=== PATIENT | male | born 1985 | race Caucasian/White ===

== ENCOUNTER 2016-12-06 15:01 | Emergency (ER) | payer OTHER ==
[~2016-12-06] VITALS: Ht 180.3 cm; Wt 68.0 kg
[2016-12-06 15:01] VITALS: BP 132/74
[2016-12-06] MEDS ORDERED: SUBO8MIS (15:23)
[2016-12-06] MEDS ORDERED: TYLE325C PO (15:23)
--- NOTE | 2016-12-06 17:57 | REP ---
LEFT UPPER EXTREMITY DUPLEX VEINS: HISTORY: Left arm pain. There are no filling defects in the deep venous system. The deep venous system is patent. The cephalic vein is not seen. IMPRESSION: There is no deep venous thrombosis. Signed by Dayo Cronin MD 12/06/2016 06:49 P
--- NOTE | 2016-12-06 18:10 | REPUSA ---
CLINICAL HISTORY: Left sided neck pain and headaches. TECHNIQUE: Realtime sonographic images were obtained in multiple projections. COMMENTS: Realtime examination demonstrates minimal plaque bilaterally. Hemodynamic measurement shows no evide nce of hemodynamically significant stenoses. The right ICA systolic/diastolic velocities are 70.3/33.9. The left ICA systolic/diastolic velocities are 107.7/35.7. The right CCA systolic/diastolic velocities are 140.4. The left CCA systolic/diastol ic velocities are 136.7. The right IC/CC ratio is 0.50, the left IC/CC ratio is 0.76. External carotid arteries are unremarkable, 73.1 on the right and 109.6 on the left. Vertebral arteries are visualized and have normal antegrade flow. IMPRESSION: Minimal plaque bilaterally. No evidence of hemodynamically significant stenosis. Thank you for your kind referral of this patient. We appreciate the opportunity to participate in th is patient's care.
[2016-12-06] MEDS ORDERED: CYCL5TA PO ×2 (18:24→18:49)
== END 2016-12-06 18:51 | disposition home or self-care (01) ==
LOC: M ED 16:36
DX: M54.12 Radiculopathy, cervical region (principal); F19.10 Other psychoactive substance abuse, uncomplicated; F17.200 Nicotine dependence, unspecified, uncomplicated; Z82.49 Family history of ischemic heart disease and other diseases of the circulatory system; Z88.6 Allergy status to analgesic agent

== ENCOUNTER 2017-02-14 17:23 | Emergency (ER) | payer OTHER ==
[~2017-02-14] VITALS: Ht 180.3 cm; Wt 68.2 kg
[~2017-02-14 17:23] MED LIST: CYCL5TAB PO; SUBO8MIS; TYLE325C PO
[2017-02-14 17:24] VITALS: BP 143/81
[2017-02-14] MEDS ORDERED: METH75TA PO (17:35)
[2017-02-14] MEDS ORDERED: KETOROLAC 30 MG/ML VIAL (J1885) IV ONE (18:30)
[2017-02-14] MEDS ORDERED: ONDANSETRON 4MG/2ML VIAL (J2405) IV ONE (18:30)
[2017-02-14] MEDS ORDERED: diphenhydrAMINE INJ 50MG/ML VIAL (J1200) IV ONE (18:30)
[2017-02-14] MEDS ORDERED: NS 1,000 ML IV ONE (18:30)
[2017-02-14] MEDS ORDERED: KETOROLAC 60 MG/2 ML VIAL (J1885) IM ONE (19:00)
[2017-02-14] MEDS ORDERED: diphenhydrAMINE 50 MG CAP PO ONE (19:00)
[2017-02-14] MEDS ORDERED: ONDANSETRON 4 MG ORAL DISINTEGRATING TAB (S0181) PO ONE (19:00)
--- NOTE | 2017-02-17 08:00 | REP ---
CT of the brain without IV contrast: There are no comparisons. There is no hemorrhage. There is no edema, mass effect or midline shift. The cortical stripe is unremarkable. Ventricles are normal size and midline. There is mucosal thickening in some of the ethmoid sinus air cells. The visualized paranasal sinuses and mastoid air cells otherwise are clear. Impression: There is evidence for ethmoid sinusitis. Otherwise, negative CT study of the brain. Signed by Yung العلي MD 02/14/2017 07:28 P
== END 2017-02-14 20:09 | disposition left against medical advice (07) ==
LOC: M ED 17:23
DX: G43.909 Migraine, unspecified, not intractable, without status migrainosus (principal); J32.2 Chronic ethmoidal sinusitis; K58.1 Irritable bowel syndrome with constipation; F17.200 Nicotine dependence, unspecified, uncomplicated; Z82.49 Family history of ischemic heart disease and other diseases of the circulatory system; Z82.0 Family history of epilepsy and other diseases of the nervous system; Z79.891 Long term (current) use of opiate analgesic; Z88.6 Allergy status to analgesic agent; Z88.8 Allergy status to other drugs, medicaments and biological substances; Z53.21 Procedure and treatment not carried out due to patient leaving prior to being seen by health care provider
CPT/HCPCS: 70450; 96372; 99282; J1885

== ENCOUNTER → 2018-07-22 | Outpatient (CLI) | payer OTHER ==
[~2018-07-22] MED LIST changes: +ISOVUE-300 61% 50ML VIAL (Q9967) As Ordered ONE; +LIDOCAINE 2% MDV 20 ML VIAL As Ordered ONE; +METH75TA PO
--- NOTE | 2018-08-03 10:32 | REPIR ---
DATE OF PROCEDURE: 07/22/2018 ATTENDING SURGEON: Dr. Kristian Davila TIMBER FALLER: Justine Salazar and Eugenie Waters PREOPERATIVE DIAGNOSIS: Left neck pain, prominent left external jugular vein, left upper extremity swelling. POSTOPERATIVE DIAGNOSIS: Left neck pain, prominent left external jugular vein, left upper extremity swelling. PROCEDURE: Ultrasound-guided left brachial vein cannulation, left upper extremity venogram. INDICATION: The patient is a 33-year-old male with swelling in his left upper extremity and prominent external jugular vein in the left neck with normal right sided neck veins. The patient will undergo a venogram with possible angioplasty stent and/or atherectomy. Risks, benefits and alternative treatment options were discussed with the patient. ANESTHESIA: Local with 10 mL of 2% lidocaine. FLUORO TIME: 0.2 minutes. CONTRAST: 5 mL of Isovue-300. HEPARIN: None. COMPLICATIONS: None. DRAINS: None. SPECIMENS: None. IMPLANTS: None. DESCRIPTION OF PROCEDURE: The patient was taken to the angiography suite, placed supine on the angiography table and the left upper extremity was prepped and draped in a standard surgical fashion. Ultrasound was used to guide cannulation of the left brachial vein at the antecubital fossa with a micropuncture needle. The micropuncture wire was advanced through the micropuncture needle which was upsized to a micropuncture sheath. A venogram was then performed showing no occlusion and no intervention required. The micropuncture sheath was removed and manual compression applied at the puncture site for hemostasis. Dressings were then applied. The patient tolerated the procedure well. All instrument, sponge and needle counts were correct at the end of the case. There were no complications. Dr. Davila was present for and directed the entire case. The patient was transferred to the holding area and subsequently discharged in stable condition.
== END | disposition home or self-care (01) ==
LOC: M IRPRO 07-21 09:32
PROVIDERS: ATTEND Surgery Vascular Surgery
DX: M54.2 Cervicalgia (principal); M79.89 Other specified soft tissue disorders
CPT/HCPCS: 36005; 75820; C1894; Q9967

== ENCOUNTER 2020-02-17 19:28 | Emergency (ER) | payer OTHER ==
[~2020-02-17 19:28] MED LIST changes: -ISOVUE-300 61% 50ML VIAL (Q9967) As Ordered ONE; -LIDOCAINE 2% MDV 20 ML VIAL As Ordered ONE; +METH750T2 PO; -METH75TA PO
[2020-02-17] MEDS ORDERED: LORazepam 1 MG TAB ONE (21:00)
[2020-02-17] MEDS ORDERED: LORazepam 1 MG TAB As Ordered ONE (21:16)
== END 2020-02-17 21:30 | disposition home or self-care (01) ==
LOC: M ED 19:28
DX: M54.2 Cervicalgia (principal); I73.00 Raynaud's syndrome without gangrene; F17.210 Nicotine dependence, cigarettes, uncomplicated; Z88.1 Allergy status to other antibiotic agents

== ENCOUNTER 2020-06-25 09:47 | Emergency (ER) | payer OTHER ==
[~2020-06-25] VITALS: Ht 185.4 cm; Wt 65.2 kg
[2020-06-25] MEDS ORDERED: BUPR8SUB SL (10:14)
--- NOTE | 2020-06-25 11:56 | REP ---
INDICATION: ruq pain COMPARISON: None. TECHNIQUE: Real time rob scale ultrasound examination using curved array transducer. FINDINGS: Liver is normal in contour, size, and echogenicity without focal hepatic lesions identified. Pancreas is incompletely evaluated due to interposed bowel gas. The gallbladder is normal and without gallstones, wall thickening, or pericholecystic fluid. No biliary ductal dilatation is appreciated and the common bile duct measures 3.6 mm diameter. Right kidney is normal in reniform shape without hydronephrosis and measures 13.4 x 4.9 x 3.7 cm. No ascites in the visualized right upper quadrant. IMPRESSION: Normal limited right upper quadrant ultrasound <Electronically signed by Topher Gaytan > 06/25/20 [id number]
--- NOTE | 2020-06-25 11:56 | REP ---
INDICATION: abdl pain and arm swelling COMPARISON: 12/30/2012 TECHNIQUE: PA and lateral. FINDINGS: The mediastinum and cardiac silhouette are normal. The lung diaz are clear and without acute consolidation, effusion, or pneumothorax. The skeletal structures are intact and normal. IMPRESSION: No acute cardiopulmonary process. <Electronically signed by Topher Gaytan > 06/25/20 [id number]
[2020-06-25 12:17] LABS: ALBUMIN 4.2 GM/DL (3.2-5.2); ALT/SGPT 18 U/L (12-78); BILIRUBIN,DIRECT < 0.1 MG/DL (0.0-0.2); BILIRUBIN,TOTAL 0.5 MG/DL (0.2-1.0); BLOOD UREA NITROGEN 7 MG/DL (7-18); CALCIUM LEVEL 9.6 MG/DL (8.5-10.1); CARBON DIOXIDE LEVEL 27 MEQ/L (21-32); CHLORIDE LEVEL 103 MEQ/L (98-107); CREATININE FOR GFR 0.86 MG/DL (0.70-1.30); GLOMERULAR FILTRATION RATE > 60.0 (>60); GLUCOSE, FASTING 111 MG/DL (70-100); LIPASE 68 U/L (73-393); POTASSIUM SERUM 4.7 MEQ/L (3.5-5.1); SODIUM LEVEL 137 MEQ/L (136-145); TOTAL PROTEIN 7.7 GM/DL (6.4-8.2)
[2020-06-25 12:55] LABS: BASO # 0.1 10^3/uL (0.0-0.2); BASO % 0.5 % (0.0-1.0); EOS % 0.2 % (0.0-3.0); HEMATOCRIT 48.8 % (42.0-52.0); HEMOGLOBIN 16.8 g/dl (13.5-17.5); LYMPH # 1.7 10^3/uL (1.5-5.0); LYMPH % 18.4 % (24.0-44.0); MEAN CORPUSCULAR HEMOGLOBIN 31.5 pg (27.0-33.0); MEAN CORPUSCULAR HGB CONC 34.4 g/dl (32.0-36.5); MEAN CORPUSCULAR VOLUME 91.4 fl (80.0-96.0); MONO # 0.6 10^3/uL (0.0-0.8); MONO % 6.1 % (0.0-5.0); NEUTROPHILS # 6.7 10^3/uL (1.5-8.5); NEUTROPHILS % 73.6 % (36.0-66.0); PLATELET COUNT, AUTOMATED 240 10^3/uL (150-450); RED BLOOD COUNT 5.34 10^6/uL (4.30-6.10); WHITE BLOOD COUNT 9.1 10^3/uL (4.0-10.0)
[2020-06-25 13:14] VITALS: BP 123/81
== END 2020-06-25 13:17 | disposition home or self-care (01) ==
LOC: M ED 09:47
DX: R10.11 Right upper quadrant pain (principal); K58.9 Irritable bowel syndrome, unspecified; I73.00 Raynaud's syndrome without gangrene; Z88.8 Allergy status to other drugs, medicaments and biological substances

== ENCOUNTER 2020-08-29 01:11 | Emergency (ER) | payer OTHER ==
[~2020-08-29] VITALS: Ht 185.4 cm; Wt 63.8 kg
[~2020-08-29 01:11] MED LIST changes: +BUPR8SUB SL; +MEDR4PAK PO; +METH-1165 PO; -METH750T2 PO
--- OUTSIDE RECORDS SUMMARY | 2020-08-29 01:19 | CCD ---
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 Document(s) Amylase 46 U/L 25-115 Normal (applies to non-numeric resul ts) [facility] ID Date Data Source [id number] 11/22/2019 10:34:00 PM EDT [facility] Name Value Range Interpretation Code Description Data Yaritza rce(s) Supporting Document(s) Lipase 59 U/L 73-393 Below low normal [facility] spital ID Date Data Source [id number] 09/23/2019 01:54:00 AM EDT [facility] Name Value Range Interpretation Code Description Data Yaritza rce(s) Supporting Document(s) White Blood Count 3.5-10.5 Above high normal [facility] Red Blood Count 4.30-5.70 Normal (applies to non-numeric results) [facility] Hemoglobin 13.5-17.5 Normal (applies to non-numeric resul ts) [facility] Hematocrit 38.8-50.0 Normal (applies to non-numeric resul ts) [facility] Mean Corpuscular Volume 81.2-95.1 Normal (applies to non- numeric results) [facility] Mean Corpuscular Hgb 25.6-32.2 Normal (applies to non-num nallely results) [facility] Mean Corpuscular Hgb Conc 32.0-36.0 Normal (applies to no n-numeric results) [facility] Red Cell Distribution Width 11.8-15.6 Normal (appli es to non-numeric results) [facility] Platelet Count 225 x10 3/uL 150-450 Normal (applies to non-numeric results) [facility] Mean Platelet Volume 9.4-12.4 Normal (applies to non-num nallely results) [facility] Neutrophils% (Auto) 31.0-71.0 Normal (applies to non-nume jeison results) [facility] Lymphocytes% (Auto) 20.0-55.0 Normal (applies to non-nume jeison results) [facility] Monocytes% (Auto) 4.0-12.0 Normal (applies to non-numeri c results) [facility] Eosinophils% (Auto) 1.0-8.0 Normal (applies to non-nume jeison results) [facility] Basophils% (Auto) 0.0-2.0 Normal (applies to non-numeri c results) [facility] Immature Granulocytes% (Auto) 0.0-2.0 Normal (nabila lies to non-numeric results) [facility] Neutrophils# (Auto) 1.50-6.20 Above high normal [facility] Lymphocytes# (Auto) 1.20-4.00 Normal (applies to non-nume jeison results) [facility] Monocytes# (Auto) 0.00-0.90 Normal (applies to non-numeri c results) [facility] Eosinophils# (Auto) 0.00-0.50 Normal (applies to non-nume jeison results) [facility] Basophils# (Auto) 0.00-0.20 Normal (applies to non-numeri c results) [facility] Immature Granulocytes# (Auto) 0.00-7.00 No rmal (applies to non-numeric results) [facility] ID Date Data Source [id number] 09/23/2019 01:22:00 AM EDT [facility] Imaging Services Department Imaging Report [address], [place] [address] %(RAD)RES..mtdd.print.filter("line") Name: DENISE ARORA : 1985 Age/Sex: 34M Ordering Provider: BRADLEY Lee Med Rec #: [id number] Reg Status: REG ER Room #: Date of Service: 09/23/19 Report Number: [id number] cc:Imer Matthews MD; BRADLEY Lee Send Report To: CT ABDOMEN AND PELVIS WITHOUT CONTRAST COMPARISON: CT HISTORY: Umbilical pain TECHNIQUE: CT images through the abdomen and pelvis obtained without intravenous contrast. FINDINGS: Lung bases are clear. Heart s ize is normal. Abdomen: Liver, spleen, adrenals, pancreas, gallbladder unremarkable. No hydronephrosis or urinary stone. Pelvis: Post appendectomy. No bowel obstruction. No free fluid or free air. No acute bony abnormality.Impressions: Post appendectomy. Otherwise, unremarkable noncontrast CT of the abdomen and pelvis. Time portable performed: Fluoroscopy time in seconds: Number of Exposures: Contrast Agent in ml: Method of Administration: REPORT SIGNATURE ON FILE Reported By: Sunny Dubois MD 09/23/19121 Dictation Date/Time: 09/23/19121 Transcribed Date/Time: 09/23/19121 [employer]: Name Value Range Interpretation Code Description Data Yaritza rce(s) Supporting Document(s) ID Date Data Source [id number] 09/07/2019 11:39:00 PM EST [facility] Name Value Range Interpretation Code Description Data [facility](s) Supporting Document(s) Troponin I 0.000-0.056 Normal (applies to non-numeric resu lts) [facility] Procedure Vital Signs ID Date Data Source [id number] 01/16/2020 05:09:00 AM EDT [facility] spital Name Value Range Interpretation Code Description Data Source(s) Weight Measurement Method 8 8 [facility] Weight 2400 2400 [facility] pital Temperature Source 7 7 [employer] Temperature 98.9 98.9 [facility] spital Respiratory Effort 1 1 [employer] Respiratory Rate 16 16 [facility] Pulse Rate 102 102 [facility] Height 70 70 [facility] pital Blood Pressure 139/88 139/88 [facility] Weight Measurement Method 8 8 [facility] Weight 2400 2400 [facility] pital Temperature Source 7 7 [employer] Temperature 98.9 98.9 [facility] Respiratory Effort 1 1 [employer] Respiratory Rate 16 16 [facility] Pulse Rate 102 102 [facility] Height 70 70 [facility] Blood Pressure 139/88 139/88 [facility] Weight Measurement Method 8 8 [facility] Weight 2400 2400 [facility] pital Temperature Source 7 7 [employer] Temperature 98.9 98.9 [facility] Respiratory Effort 1 1 [employer] Respiratory Rate 16 16 [facility] Pulse Rate 102 102 [facility] Height 70 70 [facility] pital Blood Pressure 139/88 139/88 [facility] Weight Measurement Method 8 8 [facility] Weight 2400 2400 [facility] pital Temperature Source 7 7 [employer] Temperature 98.9 98.9 [facility] Respiratory Effort 1 1 [employer] Respiratory Rate 16 16 [facility] Pulse Rate 102 102 [facility] Height 70 70 [facility] pital Blood Pressure 139/88 139/88 [facility] ID Date Data Source [id number] 01/06/2020 08:20:00 PM EDT [facility] Name Value Range Interpretation Code Description Data Source(s) Weight Measurement Method 8 8 [facility] Weight 2480 2480 [facility] pital Temperature Source 7 7 [employer] Temperature 98.0 98.0 [facility] Respiratory Effort 1 1 [employer] Respiratory Rate 16 16 [facility] Pulse Rate 98 98 [facility] Height 73 73 [facility] pital Blood Pressure 135/91 135/91 [facility] Weight Measurement Method 8 8 [facility] Weight 2480 2480 [facility] pital Temperature Source 7 7 [employer] Temperature 98.0 98.0 [facility] Respiratory Effort 1 1 [employer] Respiratory Rate 16 16 [facility] Pulse Rate 98 98 [facility] Height 73 73 [facility] pital Blood Pressure 135/91 135/91 [facility] Weight Measurement Method 8 8 [facility] Weight 2480 2480 [facility] pital Temperature Source 7 7 [employer] Temperature 98.0 98.0 [facility] Respiratory Effort 1 1 [employer] Respiratory Rate 16 16 [facility] Pulse Rate 98 98 [facility] pital Height 73 73 [facility] pital Blood Pressure 135/91 135/91 [facility] ID Date Data Source [id number] 01/03/2020 11:49:00 AM EDT [facility] Name Value Range Interpretation Code Description Data Source(s) Weight Measurement Method 8 8 [facility] Weight 2240 2240 [facility] pital Temperature Source 7 7 [employer] Temperature 98.8 98.8 [facility] Respiratory Effort 1 1 [employer] Respiratory Rate 20 20 [facility] Pulse Rate 104 104 [facility] pital Height 72 72 [facility] pital Blood Pressure 128/78 128/78 [facility] ID Date Data Source [id number] 11/22/2019 10:54:00 PM EDT [facility] Name Value Range Interpretation Code Description Data Source(s) Weight Measurement Method 8 8 [facility] Weight 2079 2079 [facility] pital Temperature Source 7 7 [employer] Temperature 98.4 98.4 [facility] Respiratory Effort 1 1 [employer] [employer] Respiratory Rate 16 16 [facility] Pulse Rate 96 96 [facility] pital Blood Pressure 144/86 144/86 [facility] Weight Measurement Method 8 8 [facility] Weight 2079 2079 [facility] pital Temperature Source 7 7 [employer] Temperature 98.4 98.4 [facility] spital Respiratory Effort 1 1 [employer] Respiratory Rate 16 16 [facility] Pulse Rate 96 96 [facility] pital Blood Pressure 144/86 144/86 [facility] ID Date Data Source [id number] 09/23/2019 02:12:00 AM EDT [facility] Name Value Range Interpretation Code Description Data Source(s) Weight Measurement Method 8 8 [facility] Weight 5820.203 5820.203 [facility] pital Temperature Source 7 7 [employer] Temperature 98.0 98.0 [facility] spital Respiratory Effort 1 1 [employer] Respiratory Rate 18 18 [facility] Pulse Assessment Method 4 4 [facility] Pulse Rate 92 92 [facility] 150/94 150/94 [facility] Weight Measurement Method 8 8 [facility] Weight 5820.203 5820.203 [facility] pital Temperature Source 7 7 [employer] Temperature 98.0 98.0 [facility] spital Respiratory Effort 1 1 [employer] Respiratory Rate 18 18 [facility] Pulse Assessment Method 4 4 [facility] Pulse Rate 92 92 [facility] 150/94 150/94 [facility] Respiratory Rate 18 18 [facility] Pulse Rate 92 92 [facility]ital Height 71 71 [facility] 150/94 150/94 [facility] Weight Measurement Method 8 8 [facility] Weight 5820.203 5820.203 [facility] pital Temperature Source 7 7 [employer] Temperature 98.0 98.0 [facility] spital Respiratory Effort 1 1 [employer] Pulse Assessment Method 4 4 [facility] ID Date Data Source [id number] 09/08/2019 12:06:00 AM EST [facility] Name Value Range Interpretation Code Description Data Source(s) Weight Measurement Method 8 8 [facility] Weight 1840 1840 [facility] pital Temperature Source 1 1 [employer] Temperature 98.6 98.6 [facility] Respiratory Effort 1 1 [employer] Respiratory Rate 16 16 [facility] Pulse Assessment Method 4 4 [facility] Pulse Rate 91 91 [facility] pital Height 73 73 [facility] pital Blood Pressure 127/74 127/74 [facility] Weight Measurement Method 8 8 [facility] Weight 2400 2400 [facility] pital Temperature Source 7 7 [employer] Temperature 98.9 98.9 [facility] Respiratory Effort 1 1 [employer] Respiratory Rate 16 16 [facility] Pulse Assessment Method 4 4 [facility] Pulse Rate 108 108 [facility] pital Height 73 73 [facility] pital Blood Pressure 138/88 138/88 [facility] ID Date Data Source [id number] 07/22/2019 06:15:00 PM EST [facility] Name Value Range Interpretation Code Description Data Source(s) Weight Measurement Method 1 1 [facility] Weight 2400 2400 [facility] pital Temperature Source 3 3 [employer] Temperature 98.5 98.5 [facility] Respiratory Effort 1 1 [employer] Respiratory Rate 16 16 [facility] Pulse Assessment Method 3 3 G [facility] Pulse Rate 102 102 [facility] pital Height 73 73 [facility] pital Blood Pressure 145/83 145/83 [facility] Weight Measurement Method 1 1 [facility] Weight 2400 2400 [facility] pital Temperature Source 3 3 [employer] Temperature 98.5 98.5 [facility] Respiratory Effort 1 1 [employer] Respiratory Rate 16 16 [facility] Pulse Assessment Method 3 3 [facility] Pulse Rate 102 102 [facility] Height 73 73 [facility] pital Blood Pressure 145/83 145/83 [facility] Weight Measurement Method 1 1 [facility] Weight 2400 2400 [facility] pital Temperature Source 3 3 [employer] Temperature 98.5 98.5 [facility] spital Respiratory Effort 1 1 [employer] Respiratory Rate 16 16 [facility] Pulse Assessment Method 3 3 [facility] Pulse Rate 102 102 [facility] pital Height 73 73 [facility] Blood Pressure 145/83 145/83 [facility]
[2020-08-29] MEDS ORDERED: diazePAM 5MG TABLET PO ONE (03:00)
[2020-08-29] MEDS ORDERED: ISOVUE-370 76% 100ML VIAL As Ordered ONE (03:04)
[2020-08-29 05:09] LABS: ALBUMIN 4.2 GM/DL (3.2-5.2); ALT/SGPT 20 U/L (12-78); BILIRUBIN,TOTAL 0.3 MG/DL (0.2-1.0); BLOOD UREA NITROGEN 12 MG/DL (7-18); CALCIUM LEVEL 8.8 MG/DL (8.5-10.1); CARBON DIOXIDE LEVEL 30 MEQ/L (21-32); CHLORIDE LEVEL 102 MEQ/L (98-107); CREATININE FOR GFR 0.84 MG/DL (0.70-1.30); GLOMERULAR FILTRATION RATE > 60.0 (>60); GLUCOSE, FASTING 80 MG/DL (70-100); POTASSIUM SERUM 3.9 MEQ/L (3.5-5.1); SODIUM LEVEL 138 MEQ/L (136-145); TOTAL PROTEIN 7.1 GM/DL (6.4-8.2)
[2020-08-29 06:30] VITALS: BP 134/86
[2020-08-29] MEDS ORDERED: PRED20TA PO (06:39)
[2020-08-29] MEDS ORDERED: MEDR4PAK PO (06:49)
== END 2020-08-29 06:54 | disposition home or self-care (01) ==
LOC: M ED 01:11
DX: M54.2 Cervicalgia (principal); H92.02 Otalgia, left ear; I73.00 Raynaud's syndrome without gangrene; F17.200 Nicotine dependence, unspecified, uncomplicated; Z88.6 Allergy status to analgesic agent; Z88.8 Allergy status to other drugs, medicaments and biological substances; Z79.899 Other long term (current) drug therapy

== ENCOUNTER 2020-09-07 10:04 | Emergency (ER) | payer OTHER ==
[~2020-09-07] VITALS: Ht 185.4 cm; Wt 64.8 kg
[~2020-09-07 10:04] MED LIST changes: +PRED20TA PO
[2020-09-07] MEDS ORDERED: ALPRAZolam 0.25 MG TAB PO ONE (12:10)
[2020-09-07 13:02] LABS: AMPHETAMINES LEVEL URINE NEGATIVE (NEGATIVE); BARBITURATES URINE NEGATIVE (NEGATIVE); BENZODIAZEPINES URINE NEGATIVE (NEGATIVE); CANNABINOIDS URINE NEGATIVE (NEGATIVE); COCAINE METABOLITE URINE NEGATIVE (NEGATIVE); METHADONE URINE NEGATIVE (NEGATIVE); OPIATES URINE NEGATIVE (NEGATIVE); PHENCYCLIDINE URINE NEGATIVE (NEGATIVE)
[2020-09-07 14:04] LABS: BASO % 0.4 % (0.0-1.0); EOS % 0.4 % (0.0-3.0); HEMATOCRIT 44.7 % (42.0-52.0); HEMOGLOBIN 15.2 g/dl (13.5-17.5); LYMPH # 1.5 10^3/uL (1.5-5.0); LYMPH % 14.3 % (24.0-44.0); MEAN CORPUSCULAR HEMOGLOBIN 31.9 pg (27.0-33.0); MEAN CORPUSCULAR VOLUME 93.7 fl (80.0-96.0); MONO # 0.4 10^3/uL (0.0-0.8); MONO % 4.1 % (2.0-8.0); NEUTROPHILS # 8.4 10^3/uL (1.5-8.5); NEUTROPHILS % 80.6 % (36.0-66.0); PLATELET COUNT, AUTOMATED 205 10^3/uL (150-450); RED BLOOD COUNT 4.77 10^6/uL (4.30-6.10); WHITE BLOOD COUNT 10.4 10^3/uL (4.0-10.0)
--- NOTE | 2020-09-07 14:22 | REP ---
INDICATION: neck pain/ no line/ previous drug user COMPARISON: None. TECHNIQUE: Richardson scale and color Doppler evaluation using linear high frequency transducer Findings: FINDINGS: Two-dimensional richardson scale and color images demonstrate minimal intimal thickening, with normal laminar flow and no appreciable narrowing. Color Doppler interrogation demonstrates normal arterial wave patterns and velocities with no significant spectral broadening. Normal flow direction is appreciated in the bilateral vertebral arteries. ICA peak systolic velocity: Right 116 cm/s; Left 149 cm/s ICA diastolic velocity: Right 36 cm/s; Left 44 cm/s ECA peak systolic velocity: Right 88 cm/s; Left 119 cm/s CCA peak systolic velocity: Right 156 cm/s; Left 160 cm/s ICA/CCA ratio: Right 0.74 cm/s; Left 0.93 cm/s IMPRESSION: No hemodynamically significant areas of narrowing or stenosis appreciated. Based on set standards narrowing falls within the normal/less than 50% range. <Electronically signed by Topher Gaytan > 09/07/20 [id number]
[2020-09-07 15:33] VITALS: BP 131/86
--- NOTE | 2020-09-08 08:05 | ECGEPIP ---
[facility] - ED Test Date: 2020-09-07 Pat Name: DENISE ARORA Department: Room: - Gender: Male [employer]: wisam : 1985 Requested By: NANI Curtis PA-C Order Number: [id number] Reading MD: Carolina Murillo Measurements Intervals [place] Rate: 70 P: 44 TN: 126 QRS: 85 QRSD: 82 T: 41 QT: 378 QTc: 408 Interpretive Statements Normal sinus rhythm No prior Electronically Signed on 09-08-2020 8:05:20 EST by Carolina Murillo
== END 2020-09-07 15:35 | disposition home or self-care (01) ==
LOC: M ED 10:04
DX: M54.2 Cervicalgia (principal); R22.33 Localized swelling, mass and lump, upper limb, bilateral; R51.9 Headache, unspecified; R00.2 Palpitations; Z87.19 Personal history of other diseases of the digestive system; F17.200 Nicotine dependence, unspecified, uncomplicated; Z88.6 Allergy status to analgesic agent; Z88.8 Allergy status to other drugs, medicaments and biological substances

== ENCOUNTER 2020-09-14 18:22 | Emergency (ER) | payer OTHER ==
[~2020-09-14] VITALS: Ht 185.4 cm; Wt 63.5 kg
[2020-09-14] MEDS ORDERED: METH4PACK (18:38)
[2020-09-14] MEDS ORDERED: ACET-897 PO (18:38)
[2020-09-14 18:44] VITALS: BP 150/84
[2020-09-14] MEDS ORDERED: GI COCKTAIL 50ML BTL(HYOSCYAMINE/MAALOX/LIDOCAINE VISCOUS)(1:3:1) PO ONE (19:00)
--- NOTE | 2020-09-14 19:41 | REP ---
INDICATION: palpitations COMPARISON: 06/25/2020 TECHNIQUE: Portable AP view of the chest FINDINGS: The mediastinum and cardiac silhouette are stable and within normal limits for portable technique. The lung diaz are clear without acute consolidation, effusion, or pneumothorax. Skeletal structures are intact. IMPRESSION: No acute cardiopulmonary process appreciated. <Electronically signed by Topher Gaytan > 09/14/20 [id number]
[2020-09-14 20:35] LABS: BASO # 0.1 10^3/uL (0.0-0.2); BASO % 0.4 % (0.0-1.0); EOS % 0.3 % (0.0-3.0); HEMATOCRIT 49.6 % (42.0-52.0); HEMOGLOBIN 16.7 g/dl (13.5-17.5); LYMPH # 2.8 10^3/uL (1.5-5.0); LYMPH % 19.8 % (24.0-44.0); MEAN CORPUSCULAR HEMOGLOBIN 32.1 pg (27.0-33.0); MEAN CORPUSCULAR HGB CONC 33.7 g/dl (32.0-36.5); MEAN CORPUSCULAR VOLUME 95.2 fl (80.0-96.0); MONO # 0.7 10^3/uL (0.0-0.8); MONO % 4.6 % (2.0-8.0); NEUTROPHILS # 10.6 10^3/uL (1.5-8.5); NEUTROPHILS % 74.5 % (36.0-66.0); PLATELET COUNT, AUTOMATED 222 10^3/uL (150-450); RED BLOOD COUNT 5.21 10^6/uL (4.30-6.10); WHITE BLOOD COUNT 14.3 10^3/uL (4.0-10.0)
[2020-09-14 21:09] LABS: BLOOD UREA NITROGEN 9 MG/DL (7-18); CALCIUM LEVEL 9.9 MG/DL (8.5-10.1); CARBON DIOXIDE LEVEL 32 MEQ/L (21-32); CHLORIDE LEVEL 100 MEQ/L (98-107); CREATININE FOR GFR 0.85 MG/DL (0.70-1.30); GLOMERULAR FILTRATION RATE > 60.0 (>60); GLUCOSE, FASTING 94 MG/DL (70-100); MAGNESIUM LEVEL 2.1 MG/DL (1.8-2.4); POTASSIUM SERUM 4.3 MEQ/L (3.5-5.1); SODIUM LEVEL 137 MEQ/L (136-145); T UPTAKE 34 % (33-40); THYROXINE (T4) 8.7 UG/DL (4.5-12.0)
--- NOTE | 2020-09-14 22:17 | REPVR ---
PROCEDURE INFORMATION: Exam: CT Chest Without Contrast; Diagnostic Exam date and time: 09/14/2020 9:32 PM Age: 35 years old Clinical indication: Chest pain; Other: Discomfort; Additional info: Chest discomfort TECHNIQUE: Imaging protocol: Diagnostic computed tomography of the chest without contrast. 3D rendering (Not supervised by radiologist): MIP and/or 3D reconstructed images were created by the technologist. Radiation optimization: All CT scans at this facility use at least one of these dose optimization techniques: automated exposure control; mA and/or kV adjustment per patient size (includes targeted exams where dose is matched to clinical indication); or iterative reconstruction. COMPARISON: CR Chest, 1 view 09/14/2020 7:11 PM FINDINGS: Lungs: Emphysematous changes. Pleural spaces: Unremarkable. No pneumothorax. No pleural effusion. Heart: Unremarkable. No cardiomegaly. No pericardial effusion. Aorta: Unremarkable. No aortic aneurysm. Lymph nodes: Unremarkable. No enlarged lymph nodes. Bones/joints: Unremarkable. No acute fracture. Mild degenerative changes of the thoracic spine. Soft tissues: Unremarkable. IMPRESSION: No acute abnormality. Electronically signed by: Everette Martinez On 09/14/2020 22:17:05 PM
[2020-09-14] MEDS ORDERED: ACETAMINOPHEN TAB 650MG DOSE (2X325MG) PO ONE (22:35)
[2020-09-14 22:36] LABS: METHADONE URINE NEGATIVE (NEGATIVE)
[2020-09-14 23:00] LABS: ALBUMIN 4.4 GM/DL (3.2-5.2); ALT/SGPT 22 U/L (12-78); BILIRUBIN,DIRECT < 0.1 MG/DL (0.0-0.2); BILIRUBIN,TOTAL 0.4 MG/DL (0.2-1.0); LIPASE 78 U/L (73-393); TOTAL PROTEIN 7.5 GM/DL (6.4-8.2)
[2020-09-14] MEDS ORDERED: SUCR1TA PO (23:11)
[2020-09-14] MEDS ORDERED: OMEP40CA97 PO (23:11)
[2020-09-14 23:25] LABS: AMPHETAMINES LEVEL URINE NEGATIVE (NEGATIVE); BARBITURATES URINE NEGATIVE (NEGATIVE); BENZODIAZEPINES URINE NEGATIVE (NEGATIVE); CANNABINOIDS URINE NEGATIVE (NEGATIVE); COCAINE METABOLITE URINE NEGATIVE (NEGATIVE); OPIATES URINE NEGATIVE (NEGATIVE)
--- NOTE | 2020-09-15 18:42 | ECGEPIP ---
[facility] - ED Test Date: 2020-09-14 Pat Name: DENISE ARORA Department: Room: - Gender: Male Email Developer: bety : 1985 Requested By: Carolina Murillo Order Number: [id number] Reading MD: Carolina Murillo Measurements Intervals [place] Rate: 88 P: 79 [place]: 136 QRS: 86 QRSD: 82 T: 53 QT: 356 QTc: 430 Interpretive Statements Normal sinus rhythm with sinus arrhythmia increased rate 09/07/20 Electronically Signed on 09-15-2020 18:42:34 EST by Carolina Murillo
== END 2020-09-14 23:30 | disposition left against medical advice (07) ==
LOC: M ED 18:22
DX: R07.89 Other chest pain (principal); F19.10 Other psychoactive substance abuse, uncomplicated; K58.1 Irritable bowel syndrome with constipation; Z53.9 Procedure and treatment not carried out, unspecified reason; F17.200 Nicotine dependence, unspecified, uncomplicated; Z88.6 Allergy status to analgesic agent; Z88.8 Allergy status to other drugs, medicaments and biological substances; Z79.899 Other long term (current) drug therapy

== ENCOUNTER 2020-10-29 18:27 | Emergency (ER) | payer OTHER ==
[~2020-10-29] VITALS: Ht 185.4 cm; Wt 62.9 kg
[2020-10-29 18:27] VITALS: BP 133/82
[~2020-10-29 18:27] MED LIST changes: +ACET-897 PO; +METH4PACK; +OMEP40CA97 PO; +SUCR1TA PO
[2020-10-29] MEDS ORDERED: LIDOCAINE 5% (LIDODERM) PATCH TD ONE (19:25)
[2020-10-29] MEDS ORDERED: methocarbamoL 750 MG TAB PO ONE (19:25)
[2020-10-29] MEDS ORDERED: ACETAMINOPHEN 500 MG TAB PO ONE (19:25)
[2020-10-29 19:52] LABS: BASO # 0.1 10^3/uL (0.0-0.2); BASO % 0.6 % (0.0-1.0); EOS # 0.1 10^3/uL (0.0-0.5); EOS % 0.9 % (0.0-3.0); HEMATOCRIT 46.9 % (42.0-52.0); HEMOGLOBIN 16.3 g/dl (13.5-17.5); LYMPH # 3.4 10^3/uL (1.5-5.0); LYMPH % 24.4 % (24.0-44.0); MEAN CORPUSCULAR HEMOGLOBIN 32.3 pg (27.0-33.0); MEAN CORPUSCULAR HGB CONC 34.8 g/dl (32.0-36.5); MEAN CORPUSCULAR VOLUME 93.1 fl (80.0-96.0); NEUTROPHILS # 9.1 10^3/uL (1.5-8.5); NEUTROPHILS % 65.5 % (36.0-66.0); PLATELET COUNT, AUTOMATED 261 10^3/uL (150-450); RED BLOOD COUNT 5.04 10^6/uL (4.30-6.10)
[2020-10-29 20:16] LABS: ALBUMIN 4.3 GM/DL (3.2-5.2); ALT/SGPT 21 U/L (12-78); BILIRUBIN,DIRECT < 0.1 MG/DL (0.0-0.2); BILIRUBIN,TOTAL 0.4 MG/DL (0.2-1.0); BLOOD UREA NITROGEN 10 MG/DL (7-18); CALCIUM LEVEL 9.4 MG/DL (8.5-10.1); CARBON DIOXIDE LEVEL 25 MEQ/L (21-32); CHLORIDE LEVEL 105 MEQ/L (98-107); CREATININE FOR GFR 0.74 MG/DL (0.70-1.30); GLOMERULAR FILTRATION RATE > 60.0 (>60); GLUCOSE, FASTING 84 MG/DL (70-100); SODIUM LEVEL 138 MEQ/L (136-145); TOTAL PROTEIN 8.3 GM/DL (6.4-8.2)
[2020-10-29] MEDS ORDERED: ASPE4PAD TOP (20:36)
[2020-10-29] MEDS ORDERED: METH-1165 PO (20:36)
[2020-10-29] MEDS ORDERED: **NOTE PATIENT COMMENT** MISC XX SCH (21:00)
== END 2020-10-29 20:49 | disposition home or self-care (01) ==
LOC: M ED 18:27
DX: M54.9 Dorsalgia, unspecified (principal); F17.200 Nicotine dependence, unspecified, uncomplicated; Z88.6 Allergy status to analgesic agent; Z88.8 Allergy status to other drugs, medicaments and biological substances

== ENCOUNTER 2021-04-04 14:01 | Emergency (ER) | payer OTHER ==
[~2021-04-04] VITALS: Ht 182.9 cm; Wt 65.5 kg
[~2021-04-04 14:01] MED LIST changes: +ASPE4PAD TOP; +OMEP40CA4 PO; -OMEP40CA97 PO
[2021-04-04 14:02] VITALS: BP 133/86
== END 2021-04-04 20:40 | disposition left against medical advice (07) ==
LOC: M ED 14:01
DX: R51.9 Headache, unspecified (principal); M54.2 Cervicalgia; R05 Cough; Z53.9 Procedure and treatment not carried out, unspecified reason; I73.00 Raynaud's syndrome without gangrene; G89.29 Other chronic pain; F11.10 Opioid abuse, uncomplicated; F17.200 Nicotine dependence, unspecified, uncomplicated; Z88.8 Allergy status to other drugs, medicaments and biological substances; Z88.6 Allergy status to analgesic agent

== ENCOUNTER → 2023-03-20 | Outpatient (REF) | payer OTHER ==
[2023-03-25 12:08] LABS: CREATININE, URINE 207.7 mg/dL (20.0-300.0)
== END ==
LOC: M LAB REF 16:19
PROVIDERS: ATTEND Nurse Practitioner Family
DX: Z79.899 Other long term (current) drug therapy (principal)

== ENCOUNTER 2023-04-17 16:10 | Emergency (ER) | payer OTHER | END 2023-04-17 16:20 | disposition left against medical advice (07) | LOC: M ED 16:10 | DX: Z53.21 Procedure and treatment not carried out due to patient leaving prior to being seen by health care provider (principal) ==

== ENCOUNTER 2023-06-07 02:49 | Emergency (ER) | payer MEDICAID, OTHER ==
[2023-06-07 03:09] VITALS: TEMP 101.8
[2023-06-07 03:37] LABS: BASO # 0.1 10^3/uL (0.0-0.2); BASO % 0.7 % (0.0-1.0); EOS # 0.1 10^3/uL (0.0-0.5); EOS % 0.8 % (0.0-3.0); HEMATOCRIT 42.1 % (42.0-52.0); HEMOGLOBIN 14.8 g/dl (13.5-17.5); LYMPH # 0.7 10^3/uL (1.5-5.0); LYMPH % 9.4 % (24.0-44.0); MEAN CORPUSCULAR HEMOGLOBIN 31.8 pg (27.0-33.0); MEAN CORPUSCULAR HGB CONC 35.2 g/dl (32.0-36.5); MEAN CORPUSCULAR VOLUME 90.3 fl (80.0-96.0); MONO # 0.6 10^3/uL (0.0-0.8); MONO % 7.6 % (2.0-8.0); NEUTROPHILS # 5.9 10^3/uL (1.5-8.5); NEUTROPHILS % 81.4 % (36.0-66.0); PLATELET COUNT, AUTOMATED 165 10^3/uL (150-450); RED BLOOD COUNT 4.66 10^6/uL (4.30-6.10); WHITE BLOOD COUNT 7.2 10^3/uL (4.0-10.0)
[2023-06-07 03:56] LABS: ALBUMIN 3.6 G/DL (3.2-5.2); ALKALINE PHOSPHATASE 91 U/L (46-116); ALT/SGPT < 9 U/L (7.0-40); AST/SGOT < 8 U/L (<34); BILIRUBIN,TOTAL 0.4 MG/DL (0.3-1.2); BLOOD UREA NITROGEN 7 MG/DL (9-23); CALCIUM LEVEL 8.5 MG/DL (8.5-10.1); CARBON DIOXIDE LEVEL 26 MMOL/L (20-31); CHLORIDE LEVEL 100 MMOL/L (98-107); CREATININE FOR GFR 0.85 MG/DL (0.70-1.30); GLOMERULAR FILTRATION RATE > 60.0 (>60); GLUCOSE, FASTING 123 MG/DL (60-100); POTASSIUM SERUM 3.2 MMOL/L (3.5-5.1); SODIUM LEVEL 134 MMOL/L (136-145); TOTAL PROTEIN 6.2 G/DL (5.7-8.2)
[2023-06-07] MEDS ORDERED: NS 1,000 ML IV ONE (04:10)
[2023-06-07 04:31] VITALS: BP 124/78; O2SAT 98
[2023-06-07] MEDS ORDERED: KETOROLAC 60MG 2ML VIAL IM ONE (04:35)
[2023-06-07] MEDS ORDERED: VENTAER INH (04:56)
== END 2023-06-07 05:33 | disposition home or self-care (01) ==
LOC: M ED 02:49
DX: U07.1 COVID-19 (principal); F17.210 Nicotine dependence, cigarettes, uncomplicated; Z88.8 Allergy status to other drugs, medicaments and biological substances; R00.0 Tachycardia, unspecified

== ENCOUNTER 2023-07-19 18:09 | Emergency (ER) | payer OTHER ==
[~2023-07-19] VITALS: Ht 185.4 cm; Wt 67.5 kg
[~2023-07-19 18:09] MED LIST changes: +VENTAER INH
[2023-07-19 19:51] LABS: RSV AMPLIFICATION NEGATIVE (NEGATIVE)
[2023-07-19] MEDS ORDERED: ISOVUE-370 76% 100ML VIAL As Ordered ONE (20:12)
[2023-07-19 20:52] LABS: BASO % 0.3 % (0.0-1.0); EOS # 0.1 10^3/uL (0.0-0.5); EOS % 0.5 % (0.0-3.0); HEMATOCRIT 42.5 % (42.0-52.0); HEMOGLOBIN 14.9 g/dl (13.5-17.5); LYMPH # 1.1 10^3/uL (1.5-5.0); LYMPH % 11.2 % (24.0-44.0); MEAN CORPUSCULAR HEMOGLOBIN 32.3 pg (27.0-33.0); MEAN CORPUSCULAR HGB CONC 35.1 g/dl (32.0-36.5); MONO # 0.4 10^3/uL (0.0-0.8); MONO % 3.9 % (2.0-8.0); NEUTROPHILS % 83.9 % (36.0-66.0); PLATELET COUNT, AUTOMATED 195 10^3/uL (150-450); RED BLOOD COUNT 4.62 10^6/uL (4.30-6.10); WHITE BLOOD COUNT 9.5 10^3/uL (4.0-10.0)
[2023-07-19 21:17] LABS: FREE T4 1.02 NG/DL (0.89-1.76); THYROID STIMULATING HORMONE 1.327 uIU/ML (0.55-4.78)
[2023-07-19 21:19] LABS: ALBUMIN 3.8 G/DL (3.2-5.2); ALKALINE PHOSPHATASE 93 U/L (46-116); ALT/SGPT 14 U/L (7.0-40); AST/SGOT 18 U/L (<34); BILIRUBIN,DIRECT < 0.1 MG/DL (<0.4); BILIRUBIN,TOTAL 0.3 MG/DL (0.3-1.2); BLOOD UREA NITROGEN 8 MG/DL (9-23); CALCIUM LEVEL 8.8 MG/DL (8.5-10.1); CARBON DIOXIDE LEVEL 29 MMOL/L (20-31); CHLORIDE LEVEL 108 MMOL/L (98-107); CREATININE FOR GFR 0.71 MG/DL (0.70-1.30); GLOMERULAR FILTRATION RATE > 60.0 (>60); GLUCOSE, FASTING 77 MG/DL (60-100); LIPASE 26 U/L (12-53); MAGNESIUM LEVEL 1.8 MG/DL (1.8-2.4); POTASSIUM SERUM 4.3 MMOL/L (3.5-5.1); SODIUM LEVEL 141 MMOL/L (136-145); TOTAL PROTEIN 6.4 G/DL (5.7-8.2)
[2023-07-19] MEDS ORDERED: HOLTER MONITOR XX (23:08)
[2023-07-19 23:15] VITALS: BP 118/71; TEMP 98.6; O2SAT 96
== END 2023-07-19 23:49 | disposition home or self-care (01) ==
LOC: M ED 18:09
DX: R00.2 Palpitations (principal); I49.3 Ventricular premature depolarization; J45.909 Unspecified asthma, uncomplicated; F17.200 Nicotine dependence, unspecified, uncomplicated; Z88.6 Allergy status to analgesic agent; Z88.8 Allergy status to other drugs, medicaments and biological substances; Z79.52 Long term (current) use of systemic steroids; Z79.899 Other long term (current) drug therapy
CPT/HCPCS: 36415; 70498; 71045; 80048; 80076; 83690; 83735; 84439; 84443; 85025; 87631; 93005; 93041; 94760; 99285; Q9967

== ENCOUNTER → 2023-07-26 | Outpatient (CLI) | payer OTHER ==
[~2023-07-26] MED LIST changes: +HOLTER MONITOR XX; +PRED10TA2 PO
== END ==
LOC: M EKG 13:04
PROVIDERS: ATTEND Emergency Medicine
DX: R00.2 Palpitations (principal); Z53.9 Procedure and treatment not carried out, unspecified reason

== ENCOUNTER 2023-07-27 17:07 | Emergency (ER) | payer OTHER ==
[~2023-07-27] VITALS: Ht 185.4 cm; Wt 67.4 kg
[~2023-07-27 17:07] MED LIST changes: -PRED10TA2 PO
[2023-07-27] MEDS ORDERED: PRED10TA2 PO (17:34)
[2023-07-27 20:46] LABS: BLOOD UREA NITROGEN 10 MG/DL (9-23); CALCIUM LEVEL 9.5 MG/DL (8.5-10.1); CARBON DIOXIDE LEVEL 28 MMOL/L (20-31); CHLORIDE LEVEL 106 MMOL/L (98-107); CREATININE FOR GFR 0.76 MG/DL (0.70-1.30); GLOMERULAR FILTRATION RATE > 60.0 (>60); GLUCOSE, FASTING 95 MG/DL (60-100); POTASSIUM SERUM 3.8 MMOL/L (3.5-5.1); SODIUM LEVEL 142 MMOL/L (136-145)
[2023-07-27 21:14] LABS: BASO % 0.3 % (0.0-1.0); EOS # 0.1 10^3/uL (0.0-0.5); EOS % 0.7 % (0.0-3.0); HEMATOCRIT 46.2 % (42.0-52.0); HEMOGLOBIN 16.2 g/dl (13.5-17.5); LYMPH # 2.9 10^3/uL (1.5-5.0); MEAN CORPUSCULAR HEMOGLOBIN 32.1 pg (27.0-33.0); MEAN CORPUSCULAR HGB CONC 35.1 g/dl (32.0-36.5); MEAN CORPUSCULAR VOLUME 91.7 fl (80.0-96.0); MONO # 0.8 10^3/uL (0.0-0.8); NEUTROPHILS # 9.7 10^3/uL (1.5-8.5); NEUTROPHILS % 71.6 % (36.0-66.0); PLATELET COUNT, AUTOMATED 224 10^3/uL (150-450); RED BLOOD COUNT 5.04 10^6/uL (4.30-6.10); WHITE BLOOD COUNT 13.6 10^3/uL (4.0-10.0)
[2023-07-27 21:19] LABS: CK-MB VALUE MASS < 1.0 NG/ML (<3.6)
[2023-07-27 21:23] LABS: THYROID STIMULATING HORMONE 4.823 uIU/ML (0.55-4.78)
[2023-07-27 21:24] LABS: CPK CREATINE PHOSPHOKINASE 67 U/L (46-171); MB/CK RELATIVE INDEX 1.49 (< OR =4)
[2023-07-27] MEDS ORDERED: ACETAMINOPHEN 500 MG TAB PO ONE (22:30)
[2023-07-27] MEDS ORDERED: predniSONE 20 MG TAB PO ONE (22:30)
[2023-07-27] MEDS ORDERED: PRED20TA PO (23:43)
[2023-07-28] VITALS: BP 121/62; TEMP 97.2; O2SAT 95
== END 2023-07-28 00:02 | disposition home or self-care (01) ==
LOC: M ED 17:07
DX: R00.2 Palpitations (principal); R51.9 Headache, unspecified; F19.10 Other psychoactive substance abuse, uncomplicated; F17.200 Nicotine dependence, unspecified, uncomplicated; Z86.16 Personal history of COVID-19; Z88.6 Allergy status to analgesic agent; Z88.8 Allergy status to other drugs, medicaments and biological substances; Z79.52 Long term (current) use of systemic steroids; Z79.899 Other long term (current) drug therapy
CPT/HCPCS: 36415; 70450; 71045; 80048; 82550; 82553; 83735; 84443; 85025; 93005; 93041; 99284; J7512

== ENCOUNTER 2023-07-29 12:17 | Emergency (ER) | payer OTHER ==
[~2023-07-29] VITALS: Ht 185.4 cm; Wt 66.2 kg
[~2023-07-29 12:17] MED LIST changes: +PRED10TA2 PO
[2023-07-29 12:18] VITALS: BP 148/87; TEMP 98.2; O2SAT 100
[2023-07-29] MEDS: NS 1,000 ML IV ONE ×2 (12:50→13:17)
[2023-07-29 13:47] LABS: BASO % 0.1 % (0.0-1.0); EOS % 0.1 % (0.0-3.0); HEMATOCRIT 51.1 % (42.0-52.0); HEMOGLOBIN 17.5 g/dl (13.5-17.5); LYMPH # 0.7 10^3/uL (1.5-5.0); LYMPH % 4.7 % (24.0-44.0); MEAN CORPUSCULAR HEMOGLOBIN 32.1 pg (27.0-33.0); MEAN CORPUSCULAR HGB CONC 34.2 g/dl (32.0-36.5); MEAN CORPUSCULAR VOLUME 93.8 fl (80.0-96.0); MONO # 0.2 10^3/uL (0.0-0.8); MONO % 1.6 % (2.0-8.0); NEUTROPHILS # 13.1 10^3/uL (1.5-8.5); PLATELET COUNT, AUTOMATED 246 10^3/uL (150-450); RED BLOOD COUNT 5.45 10^6/uL (4.30-6.10); WHITE BLOOD COUNT 14.1 10^3/uL (4.0-10.0)
[2023-07-29 14:17] LABS: BLOOD UREA NITROGEN 11 MG/DL (9-23); CARBON DIOXIDE LEVEL 30 MMOL/L (20-31); CHLORIDE LEVEL 103 MMOL/L (98-107); CK-MB VALUE MASS < 1.0 NG/ML (<3.6); CREATININE FOR GFR 0.77 MG/DL (0.70-1.30); GLOMERULAR FILTRATION RATE > 60.0 (>60); GLUCOSE, FASTING 97 MG/DL (60-100); POTASSIUM SERUM 4.2 MMOL/L (3.5-5.1); SODIUM LEVEL 136 MMOL/L (136-145)
[2023-07-29 14:19] LABS: FREE T4 1.05 NG/DL (0.89-1.76)
[2023-07-29 14:21] LABS: CPK CREATINE PHOSPHOKINASE 144 U/L (46-171); MB/CK RELATIVE INDEX 0.69 (< OR =4)
[2023-07-29 14:38] LABS: RSV AMPLIFICATION NEGATIVE (NEGATIVE)
== END 2023-07-29 15:34 | disposition left against medical advice (07) ==
LOC: M ED 12:17
DX: R00.2 Palpitations (principal); M79.604 Pain in right leg; R00.0 Tachycardia, unspecified; I45.81 Long QT syndrome; M54.2 Cervicalgia; K58.9 Irritable bowel syndrome, unspecified; M54.50 Low back pain, unspecified; Z79.52 Long term (current) use of systemic steroids; Z88.6 Allergy status to analgesic agent; Z53.9 Procedure and treatment not carried out, unspecified reason

== ENCOUNTER 2023-08-24 06:08 | Emergency (ER) | payer OTHER ==
[~2023-08-24] VITALS: Ht 185.4 cm; Wt 67.8 kg
[2023-08-24] MEDS: ACETAMINOPHEN 325 MG TAB PO ONE (09:28)
[2023-08-24 09:34] VITALS: BP 120/80; TEMP 98.1; O2SAT 99
[2023-08-24 10:06] LABS: ALBUMIN 4.6 G/DL (3.2-5.2); ALKALINE PHOSPHATASE 91 U/L (46-116); ALT/SGPT 30 U/L (7.0-40); AST/SGOT 41 U/L (<34); BILIRUBIN,DIRECT 0.1 MG/DL (<0.4); BILIRUBIN,TOTAL 0.7 MG/DL (0.3-1.2); BLOOD UREA NITROGEN 13 MG/DL (9-23); CALCIUM LEVEL 9.8 MG/DL (8.5-10.1); CARBON DIOXIDE LEVEL 26 MMOL/L (20-31); CHLORIDE LEVEL 98 MMOL/L (98-107); CREATININE FOR GFR 0.68 MG/DL (0.70-1.30); GLOMERULAR FILTRATION RATE > 60.0 (>60); GLUCOSE, FASTING 113 MG/DL (60-100); LIPASE 33 U/L (12-53); POTASSIUM SERUM 5.1 MMOL/L (3.5-5.1); SODIUM LEVEL 134 MMOL/L (136-145); TOTAL PROTEIN 7.7 G/DL (5.7-8.2)
[2023-08-24 10:36] LABS: BASO % 0.2 % (0.0-1.0); HEMATOCRIT 53.3 % (42.0-52.0); HEMOGLOBIN 18.8 g/dl (13.5-17.5); LYMPH # 1.2 10^3/uL (1.5-5.0); LYMPH % 8.7 % (24.0-44.0); MEAN CORPUSCULAR HEMOGLOBIN 32.8 pg (27.0-33.0); MEAN CORPUSCULAR HGB CONC 35.3 g/dl (32.0-36.5); MONO # 0.3 10^3/uL (0.0-0.8); MONO % 1.9 % (2.0-8.0); NEUTROPHILS # 12.3 10^3/uL (1.5-8.5); NEUTROPHILS % 88.7 % (36.0-66.0); PLATELET COUNT, AUTOMATED 232 10^3/uL (150-450); RED BLOOD COUNT 5.73 10^6/uL (4.30-6.10); WHITE BLOOD COUNT 13.9 10^3/uL (4.0-10.0)
== END 2023-08-24 12:30 | disposition home or self-care (01) ==
LOC: M ED 06:08
DX: R10.11 Right upper quadrant pain (principal); K27.9 Peptic ulcer, site unspecified, unspecified as acute or chronic, without hemorrhage or perforation; K21.9 Gastro-esophageal reflux disease without esophagitis; K58.9 Irritable bowel syndrome, unspecified; F19.10 Other psychoactive substance abuse, uncomplicated; F17.200 Nicotine dependence, unspecified, uncomplicated; Z88.6 Allergy status to analgesic agent; Z88.8 Allergy status to other drugs, medicaments and biological substances; Z79.52 Long term (current) use of systemic steroids; Z79.899 Other long term (current) drug therapy

== ENCOUNTER 2023-12-25 22:23 | Emergency (ER) | payer OTHER | END 2023-12-25 22:29 | disposition left against medical advice (07) | LOC: M ED 22:23 | DX: Z53.21 Procedure and treatment not carried out due to patient leaving prior to being seen by health care provider (principal) ==

== ENCOUNTER 2024-01-13 20:28 | Emergency (ER) | payer OTHER ==
[~2024-01-13] VITALS: Ht 185.4 cm; Wt 65.7 kg
[2024-01-13 20:28] VITALS: BP 140/84; TEMP 98.2; O2SAT 100
[2024-01-13 21:12] LABS: BASO # 0.1 10^3/uL (0.0-0.2); BASO % 0.4 % (0.0-1.0); EOS # 0.1 10^3/uL (0.0-0.5); EOS % 0.5 % (0.0-3.0); HEMATOCRIT 49.6 % (42.0-52.0); LYMPH % 21.4 % (24.0-44.0); MEAN CORPUSCULAR HEMOGLOBIN 32.1 pg (27.0-33.0); MEAN CORPUSCULAR HGB CONC 34.3 g/dl (32.0-36.5); MEAN CORPUSCULAR VOLUME 93.6 fl (80.0-96.0); MONO # 0.6 10^3/uL (0.0-0.8); NEUTROPHILS # 10.4 10^3/uL (1.5-8.5); NEUTROPHILS % 73.3 % (36.0-66.0); PLATELET COUNT, AUTOMATED 220 10^3/uL (150-450); WHITE BLOOD COUNT 14.1 10^3/uL (4.0-10.0)
[2024-01-13 21:37] LABS: LIPASE 26 U/L (12-53)
[2024-01-13 21:39] LABS: ALBUMIN 4.3 G/DL (3.2-5.2); ALKALINE PHOSPHATASE 95 U/L (46-116); ALT/SGPT 15 U/L (7.0-40); AST/SGOT < 8 U/L (<34); BILIRUBIN,DIRECT 0.1 MG/DL (<0.4); BILIRUBIN,TOTAL 0.5 MG/DL (0.3-1.2); BLOOD UREA NITROGEN 8 MG/DL (9-23); CALCIUM LEVEL 9.8 MG/DL (8.5-10.1); CARBON DIOXIDE LEVEL 28 MMOL/L (20-31); CHLORIDE LEVEL 105 MMOL/L (98-107); CREATININE FOR GFR 0.79 MG/DL (0.70-1.30); GLOMERULAR FILTRATION RATE > 60.0 (>60); GLUCOSE, FASTING 100 MG/DL (60-100); POTASSIUM SERUM 4.3 MMOL/L (3.5-5.1); SODIUM LEVEL 139 MMOL/L (136-145); TOTAL PROTEIN 6.9 G/DL (5.7-8.2)
== END 2024-01-14 03:58 | disposition home or self-care (01) ==
LOC: M ED 20:28
DX: S23.3XXA Sprain of ligaments of thoracic spine, initial encounter (principal); M79.641 Pain in right hand; X58.XXXA Exposure to other specified factors, initial encounter; Z53.20 Procedure and treatment not carried out because of patient's decision for unspecified reasons; Z88.6 Allergy status to analgesic agent; Z88.8 Allergy status to other drugs, medicaments and biological substances; F17.210 Nicotine dependence, cigarettes, uncomplicated; Y92.9 Unspecified place or not applicable; Y93.89 Activity, other specified; Y99.9 Unspecified external cause status

== ENCOUNTER 2024-03-07 14:30 | Emergency (ER) | payer OTHER ==
[~2024-03-07] VITALS: Ht 185.4 cm; Wt 69.7 kg
[2024-03-07] MEDS ORDERED: ZOLP10TA2 (14:40)
[2024-03-07] MEDS ORDERED: ADV100INH (14:40)
[2024-03-07] MEDS: NEOSPORIN OINT 0.9 GM PKT TOP ONE (15:05)
[2024-03-07] MEDS: BOOSTRIX VACCINE (TETANUS/DIPHTH/ACEL. PERTUSSIS) 0.5ML SYR IM.IMMUN ONE (15:13)
[2024-03-07] MEDS ORDERED: METH-1165 PO (15:23)
[2024-03-07] MEDS ORDERED: BACI500O8 TOP (15:23)
[2024-03-07 15:57] VITALS: BP 122/80; TEMP 97.7; O2SAT 97
== END 2024-03-07 16:00 | disposition home or self-care (01) ==
LOC: M ED 14:30
DX: S61.213A Laceration without foreign body of left middle finger without damage to nail, initial encounter (principal); M43.6 Torticollis; W26.8XXA Contact with other sharp object(s), not elsewhere classified, initial encounter; M54.2 Cervicalgia; M54.50 Low back pain, unspecified; K58.9 Irritable bowel syndrome, unspecified; F17.200 Nicotine dependence, unspecified, uncomplicated; Z88.6 Allergy status to analgesic agent; Z88.8 Allergy status to other drugs, medicaments and biological substances; Z79.52 Long term (current) use of systemic steroids; Z79.899 Other long term (current) drug therapy; Z23 Encounter for immunization; Y92.9 Unspecified place or not applicable; Y93.89 Activity, other specified; Y99.9 Unspecified external cause status

== ENCOUNTER → 2024-11-24 | Outpatient (REF) ==
[~2024-11-24] MED LIST changes: +ADVA1AER8; +BACI500O8 TOP; -CYCL5TAB PO; +CYCL5TAB4 PO; +ZOLP10TA2
== END ==
LOC: M PLAIMG 15:30
PROVIDERS: ATTEND Internal Medicine
DX: M41.9 Scoliosis, unspecified (principal)